=== PATIENT | male | born 1995 | race Hispanic/Latino ===

== ENCOUNTER 2017-02-25 09:12 | Emergency (ER) | payer MEDICAID ==
[2017-02-25] MEDS ORDERED: ONDANSETRON ODT 4 MG TAB ONE (09:37)
[2017-02-25] MEDS ORDERED: KETOROLAC TROMETHAMINE 60 MG/2 ML VIAL ONE (09:37)
== END 2017-02-25 10:56 | disposition home or self-care (01) ==
LOC: EDH 09:12
DX: A09 Infectious gastroenteritis and colitis, unspecified (principal); K21.9 Gastro-esophageal reflux disease without esophagitis; Z98.890 Other specified postprocedural states; Z72.0 Tobacco use; Z79.899 Other long term (current) drug therapy
CPT/HCPCS: 82270; 87046; 87205; 96372; 99284; J1885

== ENCOUNTER 2017-05-26 14:48 | Emergency (ER) | payer MEDICAID ==
[2017-05-26] MEDS ORDERED: FAMOTIDINE 20MG TAB 20 MG TAB ONE (15:19)
[2017-05-26] MEDS ORDERED: PREDNISONE 20 MG TABLET ONE (15:19)
== END 2017-05-26 15:43 | disposition home or self-care (01) ==
LOC: EDH 14:48
DX: T63.441A Toxic effect of venom of bees, accidental (unintentional), initial encounter (principal); K21.9 Gastro-esophageal reflux disease without esophagitis; Z79.899 Other long term (current) drug therapy; Z72.0 Tobacco use; Z91.030 Bee allergy status; Y92.89 Other specified places as the place of occurrence of the external cause

== ENCOUNTER 2017-07-18 09:13 | Emergency (ER) | payer MEDICAID ==
[2017-07-18] MEDS ORDERED: ONDANSETRON HCL MDV 20ML 2 MG/ML VIAL ONE (09:36)
[2017-07-18] MEDS ORDERED: SODIUM CHLORIDE 0.9% 1000ML 1,000 ML IV ONE (09:36)
[2017-07-18] MEDS ORDERED: KETOROLAC TROMETHAMINE 30MG/ML ONE (09:37)
[2017-07-18] MEDS ORDERED: DICYCLOMINE HCL 10 MG/ML 2ML AMP IM ONE (09:37)
[2017-07-18 10:03] LABS: BASOPHILS % (AUTO) 0.3 % (0.0-5.0); EOSINOPHILS % (AUTO) 0.3 % (0.0-8.0); HEMATOCRIT 46.2 % (42-54); LYMPHOCYTES % (AUTO) 11.4 % (21.0-51.0); MEAN CORPUSCULAR HEMOGLOBIN 30.8 pg (27.0-33.0); MEAN CORPUSCULAR HGB CONC 35.5 g/dL (32.0-36.0); MEAN CORPUSCULAR VOLUME 86.8 fL (80-100); MONOCYTES % (AUTO) 4.4 % (3.0-13.0); NEUTROPHILS % (AUTO) 83.6 % (40.0-77.0); PLATELET COUNT (AUTO) 212 K/uL (130-400); RED BLOOD CELL COUNT(AUTO) 5.33 MIL/uL (4.50-6.20); RED CELL DISTRIBUTION WIDTH 13.6 % (11.0-15.5); WHITE BLOOD COUNT (AUTO) 8.8 K/uL (4.8-10.8)
[2017-07-18 10:15] LABS: CREATININE 0.8 mg/dL (0.5-1.5); POTASSIUM 4.1 mmol/L (3.5-5.1)
[2017-07-18 10:21] LABS: ALBUMIN 4.4 g/dL (3.5-5.0); BILIRUBIN,TOTAL 0.5 mg/dL (0.2-1.0); TOTAL PROTEIN, SERUM 8.2 g/dL (6.0-8.3)
[2017-07-18] MEDS ORDERED: LIDOCAINE HCL 2% VISCOUS 15 ML UDCUP ONE (10:41)
[2017-07-18] MEDS ORDERED: MAG HYDROX/AL HYDROX/SIMETH ES 30 ML SUSP UDCUP ONE (10:41)
== END 2017-07-18 11:25 | disposition home or self-care (01) ==
LOC: EDH 09:13
DX: K29.70 Gastritis, unspecified, without bleeding (principal); K29.80 Duodenitis without bleeding; K21.9 Gastro-esophageal reflux disease without esophagitis; F41.9 Anxiety disorder, unspecified; Z91.030 Bee allergy status
CPT/HCPCS: 36415; 80053; 83690; 85025; 96361; 96372; 96374; 96375; 99285; J0500; J1885; J7030

== ENCOUNTER 2018-03-02 10:07 | Emergency (ER) | payer MEDICAID ==
[2018-03-02] MEDS ORDERED: IBUPROFEN 600 MG TABLET ONE (10:51)
== END 2018-03-02 11:21 | disposition home or self-care (01) ==
LOC: EDH 10:07
DX: S90.32XA Contusion of left foot, initial encounter (principal); K21.9 Gastro-esophageal reflux disease without esophagitis; Z91.030 Bee allergy status; W20.8XXA Other cause of strike by thrown, projected or falling object, initial encounter; Y93.89 Activity, other specified; Y92.098 Other place in other non-institutional residence as the place of occurrence of the external cause; Y99.8 Other external cause status
CPT/HCPCS: 73630

== ENCOUNTER 2019-01-29 22:16 | Emergency (ER) | payer MEDICAID ==
[2019-01-29] MEDS ORDERED: ONDANSETRON HCL 4 MG/2 ML VIAL ONE (22:44)
[2019-01-29] MEDS ORDERED: FAMOTIDINE/PF 20 MG/2 ML VIAL IV ONE (22:44)
[2019-01-29 23:00] LABS: BASOPHILS % (AUTO) 0.8 % (0.0-5.0); EOSINOPHILS % (AUTO) 0.6 % (0.0-8.0); HEMATOCRIT 42.3 % (42-54); LYMPHOCYTES % (AUTO) 27.7 % (21.0-51.0); MEAN CORPUSCULAR HEMOGLOBIN 30.5 pg (27.0-33.0); MONOCYTES % (AUTO) 7.4 % (3.0-13.0); NEUTROPHILS % (AUTO) 63.5 % (40.0-77.0); NUCLEATED RED BLOOD CELLS 0.1 % (0.0-0.19); PLATELET COUNT (AUTO) 152 K/uL (130-400); RED BLOOD CELL COUNT(AUTO) 4.86 MIL/uL (4.50-6.20); RED CELL DISTRIBUTION WIDTH 13.6 % (11.0-15.5); WHITE BLOOD COUNT (AUTO) 4.9 K/uL (4.8-10.8)
[2019-01-29 23:13] LABS: CREATININE 0.7 mg/dL (0.5-1.5); POTASSIUM 4.3 mmol/L (3.5-5.1)
[2019-01-29 23:19] LABS: ALBUMIN 3.9 g/dL (3.5-5.0); BILIRUBIN,TOTAL 0.5 mg/dL (0.2-1.0); TOTAL PROTEIN, SERUM 7.3 g/dL (6.0-8.3)
[2019-01-29] MEDS ORDERED: SUCRALFATE 1 GM TABLET ONE (23:33)
[2019-01-29] MEDS ORDERED: HYOSCYAMINE SULFATE 0.125 MG TAB.SUBL SL ONE (23:33)
== END 2019-01-30 00:48 | disposition home or self-care (01) ==
LOC: EDH 22:16
DX: K29.01 Acute gastritis with bleeding (principal); K21.9 Gastro-esophageal reflux disease without esophagitis; Z91.030 Bee allergy status
CPT/HCPCS: 36415; 80053; 83690; 85025; 96361; 96374; 96375; 99285; J2405; J3490

== ENCOUNTER 2022-06-15 21:42 | Emergency (ER) | payer MEDICAID ==
[~2022-06-15] VITALS: Ht 177.8 cm; Wt 112.0 kg
[2022-06-15 22:58] LABS: BASOPHILS % (AUTO) 0.4 % (0.0-5.0); EOSINOPHILS % (AUTO) 0.4 % (0.0-8.0); HEMATOCRIT 45.8 % (42-54); LYMPHOCYTES % (AUTO) 15.3 % (21.0-51.0); MEAN CORPUSCULAR HEMOGLOBIN 29.7 pg (27.0-33.0); MEAN CORPUSCULAR HGB CONC 35.2 g/dL (32.0-36.0); MEAN CORPUSCULAR VOLUME 84.5 fL (79-99); MONOCYTES % (AUTO) 4.6 % (3.0-13.0); PLATELET COUNT (AUTO) 225 K/uL (130-400); RED BLOOD CELL COUNT(AUTO) 5.42 MIL/uL (4.50-6.20); RED CELL DISTRIBUTION WIDTH 12.9 % (11.0-15.5); WHITE BLOOD COUNT (AUTO) 11.3 K/uL (4.8-10.8)
[2022-06-15] MEDS ORDERED: MAG/ALUM/SIMETH 30 ML UDCUP ONE (23:05)
[2022-06-15] MEDS ORDERED: LIDOCAINE HCL 2% VISCOUS 15 ML UDCUP ONE (23:05)
[2022-06-15 23:09] VITALS: BP 124/75
[2022-06-15 23:14] LABS: CREATININE 1.1 mg/dL (0.5-1.5); POTASSIUM 3.7 mmol/L (3.5-5.1)
[2022-06-15 23:18] LABS: ALBUMIN 4.4 g/dL (3.5-5.0); TOTAL PROTEIN, SERUM 8.1 g/dL (6.0-8.3)
[2022-06-15] MEDS ORDERED: DICYCLOMINE HCL 10 MG/5 ML ML PO SCH (23:30)
[2022-06-15] MEDS ORDERED: LIDOCAINE HCL 2% VISCOUS 15 ML UDCUP PO ONE (23:30)
[2022-06-15] MEDS ORDERED: MAG/ALUM/SIMETH 30 ML UDCUP PO ONE (23:30)
[2022-06-15 23:33] LABS: APPEARANCE,URINE CLEAR (CLEAR); BILIRUBIN,URINE NEGATIVE (NEGATIVE); COLOR,URINE YELLOW (YELLOW); GLUCOSE, URINE (UA) NEGATIVE (NEGATIVE); KETONES,URINE 5 mg/dL (NEGATIVE); LEUKOCYTE ESTERASE ,URINE NEGATIVE Leu/uL (NEGATIVE); NITRATE,URINE NEGATIVE (NEGATIVE); OCCULT BLOOD,URINE NEGATIVE (NEGATIVE); PROTEIN,URINE 50 mg/dL (NEGATIVE); UROBILINOGEN,URINE 3 mg/dL (0.2-1.0)
[2022-06-15 23:35] LABS: MUCUS,URINE MANY LPF (None Seen); SQUAMOUS EPITHELIAL CELL,UR RARE /HPF (0-2)
[2022-06-16] MEDS ORDERED: IBUP-1493 PO (00:27)
[2022-06-16] MEDS ORDERED: CEFU500T67 PO (00:27)
== END 2022-06-16 02:33 | disposition home or self-care (01) ==
LOC: EDH 21:42
DX: N39.0 Urinary tract infection, site not specified (principal)
CPT/HCPCS: 36415; 74021; 80053; 81001; 83690; 85025; 87088

== ENCOUNTER 2023-10-20 19:04 | Emergency (ER) | payer MEDICAID ==
[~2023-10-20] VITALS: Ht 175.3 cm; Wt 90.7 kg
[~2023-10-20 19:04] MED LIST: CEFU500T67 PO; IBUP-1493 PO
[2023-10-20 19:27] VITALS: BP 152/94; PULSE 83; RESP 20
[2023-10-20] MEDS: LIDOCAINE HCL 1% 20 ML VIAL INJ SCH (20:30)
[2023-10-20] MEDS: DIPH,PERTUSS(ACELL),TET VAC/PF 0.5 ML VIAL IM ONE (22:25)
== END 2023-10-20 23:12 | disposition home or self-care (01) ==
LOC: EDH 19:04
DX: S01.01XA Laceration without foreign body of scalp, initial encounter (principal); W22.8XXA Striking against or struck by other objects, initial encounter; Y93.89 Activity, other specified; Y92.89 Other specified places as the place of occurrence of the external cause; Y99.8 Other external cause status
CPT/HCPCS: 12002; 70450; 90471; 90715

== ENCOUNTER 2025-01-29 01:52 | Observation (INO) | payer MEDICAID ==
[~2025-01-29] VITALS: Ht 177.8 cm; Wt 118.0 kg
[2025-01-29] VITALS (25 sets, daily range): BP systolic 113–160; BP diastolic 58–92; PULSE 71–109; RESP 14–20; TEMP 97.1–98.5; O2SAT 95–100
[2025-01-29] MEDS: 0.9%NACL 1000ML 1,000 ML IV ONE (02:19)
[2025-01-29 02:23] LABS: IMMATURE GRANULOCYTE ABSOLUTE 0.03 K/uL (0-1); NUCLEATED RED BLOOD CELLS 0.0 % (0.0-0.19); PLATELET COUNT (AUTO) 270 K/uL (130-400); RED BLOOD CELL COUNT(AUTO) 5.20 MIL/uL (4.50-6.20); RED CELL DISTRIBUTION WIDTH 12.9 % (11.0-15.5); WHITE BLOOD COUNT (AUTO) 11.5 K/uL (4.8-10.8)
[2025-01-29 02:38] LABS: CREATININE 0.9 mg/dL (0.5-1.3); GLOMERULAR FILTR. RATE CALC 119.0 mL/min (>90); GLUCOSE,RANDOM 129.0 mg/dL (70-105); SODIUM SERUM 137.0 mmol/L (136-145); UREA NITROGEN, BLOOD 10.0 mg/dL (7-18)
[2025-01-29 02:43] LABS: ASPARTATE AMINOTRANSFERASE 28.0 U/L (10-37); TOTAL PROTEIN, SERUM 6.8 g/dL (6.0-8.3)
--- NOTE | 2025-01-29 02:49 | ERN ---
ED Note History of Present Illness Stated Complaint: C/O ABD PAIN Chief Complaint: Abdominal Pain Time Seen by MD: :57 Time Seen by Midlevel: 01:57 Dictation: The patient is a 29-year-old male with no past medical history who presents to the emergency department with complains of right lower quadrant abd pain onset prior to arrival. Denies any nausea, vomiting or diarrhea. Reports last bm yesterday. Denies fevers or urinary complains. Allergies: Coded Allergies: No Known Allergies (Unverified Allergy, Unknown, 06/15/22) Home Meds Active Scripts Ibuprofen (Motrin/Advil) 800 Mg Tab, 800 MG PO TIDP PRN for PAIN, #30 TAB Prov:ROWAN TIPTON MD 06/16/22 Cefuroxime Axetil (Cefuroxime) 500 Mg Tablet, 500 MG PO BID, #20 TAB Prov:ROWAN TIPTON MD 06/16/22 Past Medical History Past Medical History: No Pertinent History Surgical History: None Family History: Negative Social History: ETOH, Lives with family Review of System Dictation Constitutional: Negative for fever,chills, and weight loss Eyes: Negative for injury, pain,redness, and discharge ENT: Negative for injury,pain or swelling Cardiovascular: Negative for chest pain, palpitations, and edema Respiratory: Negative for shortness of breath, cough, and wheezing, Abdomen/GI: Negative for nausea, vomiting, diarrhea, and constipation Positive for abdominal pain, Back: Negative for injury and pain : Negative for injury, bleeding and discharge MS/Extremity: Negative for injury and deformity Skin: Negative for rash, and discoloration Neuro: Negative for headache, weakness, numbness, tingling, and seizure Psych: Negative for suicide ideation, homicidal ideation, and hallucinations Initial Vital Sign VS Vital Signs Date Time Temp Pulse Resp B/P (MAP) Pulse Ox O2 Delivery O2 Flow Rate FiO2 01/29/25 01:55 97.2 81 20 134/84 100 Room Air Physical Exam Dictation Vital Signs reviewed General Appearance: Alert, oriented x 3, no acute distress, well developed, nourished. Head and Face: non-traumatic. Eyes: PERRL, pink conjunctivas, eyelid no trauma, anterior chamber with arcus senilis. Ears: Pinnas intact and no signs of trauma or erythema ear canals clear and no discharge TM no erythema Nose: No discharge, no bleeding. Oropharynx: Mouth normal, tongue pink. pharynx clear,no erythema, tonsils no exudates, no abscesses noted, mucous membrane moist Neck: Supple, non-tender, no thyromegaly, no masses, no JVD, no bruits Breast:Deferred Chest:No tenderness, no crepitus, no paradoxical movement, no retractions Lungs:Clear, well-ventilated, symmetric, no rales, no wheezing, no rhonchi, no stridor, good breath sounds bilaterally Heart: Regular rate, regular rhythm, no murmur, no gallops Vascular: no peripheral edema, Abdomen: Soft, positive bowel sounds, nondistended, no guarding, rlq tenderness, no rebound, no masses no hepatomegaly, no splenomegaly, no Cox's sign, no hernias. Rectal: Deferred Genital: Deferred Neurological: Normal speech, motor function intact, sensory function intact Musculoskeletal: Neck nontender, full range of motion, back nontender, full range of motion, Extremities: nontender, full range of motion Skin: Color pink, dry, no turgor, no rash, no lacerations, no abrasions, no contusions. Lymphatic: Deferred Results (Laboratory/Radiology) Laboratory/Radiology Laboratory Tests Test 01/29/25 02:13 White Blood Count 11.5 K/uL (4.8-10.8) H Red Blood Count 5.20 MIL/uL (4.50-6.20) Hemoglobin 15.6 g/dL (14.0-18.0) Hematocrit 44.3 % (42-54) Mean Corpuscular Volume 85.2 fL (79-99) Mean Corpuscular Hemoglobin 30.0 pg (27.0-33.0) Mean Corpuscular Hemoglobin Concent 35.2 g/dL (32.0-36.0) Red Cell Distribution Width 12.9 % (11.0-15.5) Platelet Count 270 K/uL (130-400) Mean Platelet Volume 9.8 fL (7.5-10.5) Immature Granulocyte % (Auto) 0.3 % (0-1) Neutrophils (%) (Auto) 74.4 % (40.0-77.0) Lymphocytes (%) (Auto) 19.3 % (21.0-51.0) L Monocytes (%) (Auto) 4.8 % (3.0-13.0) Eosinophils (%) (Auto) 0.6 % (0.0-8.0) Basophils (%) (Auto) 0.6 % (0.0-5.0) Neutrophils # (Auto) 8.5 K/uL (1.8-7.7) H Lymphocytes # (Auto) 2.2 K/uL (1.0-4.8) Monocytes # (Auto) 0.6 K/uL (0.1-1.0) Eosinophils # (Auto) 0.07 K/uL (0.00-0.70) Basophils # (Auto) 0.07 K/uL (0.00-0.20) Absolute Immature Granulocyte (auto 0.03 K/uL (0-1) Nucleated Red Blood Cells 0.0 % (0.0-0.19) Sodium Level 137 mmol/L (136-145) Potassium Level 3.7 mmol/L (3.5-5.1) Chloride Level 103 mmol/L (101-111) Carbon Dioxide Level 25 mmol/L (21-32) Blood Urea Nitrogen 10 mg/dL (7-18) Creatinine 0.9 mg/dL (0.5-1.3) Glomerular Filtration Rate Calc 119 mL/min (>90) Random Glucose 129 mg/dL (70-105) H Total Calcium 8.4 mg/dL (8.5-10.1) L Total Bilirubin 0.4 mg/dL (0.2-1.0) Direct Bilirubin 0.1 mg/dL (0.0-0.3) Aspartate Amino Transf (AST/SGOT) 28 U/L (10-37) Alanine Aminotransferase (ALT/SGPT) 32 U/L (12-78) Alkaline Phosphatase 79 U/L (50-136) Total Protein 6.8 g/dL (6.0-8.3) Albumin 3.5 g/dL (3.5-5.0) Lipase 35 U/L (16-77) ED Course ED Course Orders Procedure Category Date Status Time Cbc With Differential LAB 01/29/25 Complete 02:05 Basic Metabolic Panel LAB 01/29/25 Complete 02:05 Hepatic Function Panel LAB 01/29/25 Complete 02:05 Lipase LAB 01/29/25 Complete 02:05 Morphine 4mg Syg PHA 01/29/25 Complete (Morphine 4mg Syg) 02:30 Ondansetron 4mg Inj PHA 01/29/25 Complete (Zofran 4mg Inj) 02:30 0.9%Nacl 1000ml (Ns PHA 01/29/25 Complete 1000ml) 02:30 Urinalysis Profile LAB 01/29/25 Logged 02:08 Ct Abdomen/Pelvis CT 01/29/25 Taken W/Contrast 02:33 Zosyn 3.375gm+Ns 50ml PHA 01/29/25 In Process (Zosyn 3.375gm+Ns 04:00 Current Medications Medications (Trade) Dose Ordered Sig/Clem Route PRN Reason Start Time Stop Time Status Last Admin Dose Admin Morphine Sulfate (morPHINE 4MG SYG) 4 mg ONCE ONCE IVP 01/29/25 02:30 01/29/25 02:31 DC 01/29/25 02:19 Ondansetron HCl (zoFRAN 4MG INJ) 4 mg ONCE ONCE IVP 01/29/25 02:30 01/29/25 02:31 DC 01/29/25 02:19 Piperacillin Sod/ Tazobactam Sod (Zosyn 3.375gm+NS 50ml) 3.375 gm ONCE ONCE IV 01/29/25 04:00 01/29/25 04:01 Sodium Chloride 1,000 ml @ 0 mls/hr ONCE ONCE IV 01/29/25 02:30 01/29/25 02:31 DC 01/29/25 02:19 Vital Signs Date Time Temp Pulse Resp B/P (MAP) Pulse Ox O2 Delivery O2 Flow Rate FiO2 01/29/25 01:55 97.2 81 20 134/84 100 Room Air Medical Decision Making MDM Received sign-out for mid-level: Patient has a 29-year-old male who woke up in the middle of the night 2-1/2 hours prior to arrival with the acute onset right- sided abdominal pain. He decided to come to the emergency room for evaluation. As per cytogenetic technician, images/readings are not crossing over to the system however in his noted to be an appendicitis. We will admit the patient to the hospitalist, keep NPO and started on Zosyn. DX & DISP Disposition: Inpatient Departure Impression: Primary Impression: Acute appendicitis Condition: Stable Referrals: KRISTIN JEAN-BAPTISTE (PCP) TOD ELIZABETH Jan 29, 2025 02:48 JERORD MORTENSEN MD Jan 29, 2025 03:51
--- NOTE | 2025-01-29 03:45 | NUR ---
PATIENT STATES HE DOES NOT TAKE ANY PRESCRIBED MEDICATIONS
[2025-01-29] MEDS: ZOSYN 3.375GM +NS 50ML IV ONE (03:50)
[2025-01-29 04:14] LABS: APPEARANCE,URINE CLEAR (CLEAR); GLUCOSE, URINE (UA) NEGATIVE (NEGATIVE); LEUKOCYTE ESTERASE ,URINE NEGATIVE Leu/uL (NEGATIVE); NITRATE,URINE NEGATIVE (NEGATIVE); OCCULT BLOOD,URINE NEGATIVE (NEGATIVE)
[2025-01-29 04:26] LABS: ADD UA MICROSCOPIC NO
--- NOTE | 2025-01-29 04:31 | HP ---
[facility] HISTORY AND PHYSICAL Date of Service: Jan 29, 2025 Time of Service: 04:14 PCP: Moon Gusman HISTORY OF PRESENT ILLNESS: This is a 29-year-old male with no pertinent medical history who presents to the ED for complaints of right lower quadrant abdominal pain started around midnight and patient took Ibuprofen 4 tabs of 200 mg prior to coming but no relief he said.Patient reports he had chicken, noddles , potato and also Takis 3 hours after he started having abdominal pain that was sharp so he decided to come tot he Ed for evaluation. Seen and examined patient in the ED awake,alert and coherent,appears comfortable,reports pain has subsided to 2/10 pain level at this time. was at bedside during my evaluation.Patient denies fever,chills,nausea,vomiting,and diarrhea.Last bowel movement was yesterday and it was normal he said. Vital signs temperature 97.2, heart rate 81, blood pressure 134/84 saturation 100% on room air. Labs: WBC 11 hemoglobin 15, hematocrit 44, platelet count 270. Random glucose 129, total calcium 8.4 the rest of the chemistries normal. While in the ER patient received morphine 4 mg IV, Zofran 4 mg IV 1 L NS bolus and Zosyn IV.As per ER MD ,preliminary CT abdomen result showed an acute appendicitis and General surgery photonics technician was consulted.Will admit patient for further medical management. REVIEW OF SYSTEMS CONSTITUTIONAL: Denies fevers, chills, or night sweats. No unintentional weight loss reported. NEUROLOGICAL: Denies headache, amaurosis fugax, motor weakness, sensory deficit, vertigo/spinning sensation, gait abnormalities, or tremors. ENT: No hearing loss, otalgia, otorrhea, rhinitis, rhinorrhea, hoarseness, or sore throat. CARDIOVASCULAR: Denies any exertional angina, dyspnea on exertion, orthopnea, paroxysmal nocturnal dyspnea, palpitations, life-threatening arrhythmias, claudication. PULMONARY: Denies any shortness of breath, cough, phlegm/sputum, hemoptysis, pleuritic chest pain. SLEEP: Denies morning headaches, daytime somnolence or napping. Denies difficulty falling asleep, staying asleep, waking from sleep. Denies knowledge of snoring. GASTROINTESTINAL: Complained of right lower quadrant abdominal pain Denies any type of dysphagia to either liquids or solids. Denies nausea, vomiting, pyrosis, early satiety, diarrhea, constipation, or changes in stool consistency or caliber. Denies coffee-ground emesis, hematemesis, hematochezia, or melanotic stools. GENITOURINARY: Denies frequency, urgency, nocturia, hematuria or incontinence (Storage/Irritative symptoms.) Low urinary stream, straining to void, urinary intermittency or hesitancy, splitting of the voiding stream, terminal dribbling. ENDOCRINOLOGIC: Denies polyuria, polydipsia, polyphagia or heat/cold intolerances. HEMATOLOGIC: Denies thrombophilia/previous clots, or coagulopathy/bleeding disorders. ONCOLOGIC: Denies personal history of malignancy. DERMATOLOGIC: Denies rashes or pruritus. PSYCHIATRIC: Denies any suicidal or homicidal ideation. Denies hallucinations. PAST MEDICAL HISTORY: [ Patient denies ] PAST SURGICAL HISTORY: [ Right knee surgery as a child] PAST SOCIAL HISTORY: [ Lives with . Patient denies alcohol and recreational drug use. Patient admits to smoking three cigarettes per day] FAMILY HISTORY: [ Noncontributory ] Coded Allergies: No Known Allergies (Unverified Allergy, Unknown, 06/15/22) PHYSICAL EXAM GENERAL APPEARANCE: The patient is awake, alert, and oriented, in no acute cardiopulmonary distress. NEUROLOGICAL: Cranial nerves II-XII grossly intact. Motor is 5/5 in bilateral upper and lower extremities proximal to distal. No sensory deficits. HEENT: Face is symmetric. Pupils are equal and reactive. Extraocular movements are intact. NECK: Supple. No JVD. No thyromegaly. No submental, submandibular, pre-/postau ricular, occipital or supraclavicular lymphadenopathy. CHEST: Normal chest expansion. No Telemetry. LUNGS: Absence of any rales, rhonchi or any wheezing. CARDIOVASCULAR: Regular. S1 and S2 normal. No appreciable rubs, murmurs or gallops. ABDOMEN: Positive rebound tenderness around right lower quadrant area Soft and nondistended. There is no voluntary guarding, or rigidity. : Deferred. No Garcia. EXTREMITIES: Non-edematous and not cyanotic. No clubbing. Good capillary refill. SKIN: No skin breakdown. Vital Sign (Last 24 Hours) 01/29/25 01:55 Temp 97.2 Pulse 81 Resp 20 B/P (MAP) 134/84 Pulse Ox 100 O2 Delivery Room Air LABS: Laboratory: Test 01/29/25 02:13 Range/Units White Blood Count 11.5 H 4.8-10.8 K/uL Red Blood Count 5.20 4.50-6.20 MIL/uL Hemoglobin 15.6 14.0-18.0 g/dL Hematocrit 44.3 42-54 % Mean Corpuscular Volume 85.2 79-99 fL Mean Corpuscular Hemoglobin 30.0 27.0-33.0 pg Mean Corpuscular Hemoglobin Concent 35.2 32.0-36.0 g/dL Red Cell Distribution Width 12.9 11.0-15.5 % Platelet Count 270 130-400 K/uL Mean Platelet Volume 9.8 7.5-10.5 fL Immature Granulocyte % (Auto) 0.3 0-1 % Neutrophils (%) (Auto) 74.4 40.0-77.0 % Lymphocytes (%) (Auto) 19.3 L 21.0-51.0 % Monocytes (%) (Auto) 4.8 3.0-13.0 % Eosinophils (%) (Auto) 0.6 0.0-8.0 % Basophils (%) (Auto) 0.6 0.0-5.0 % Neutrophils # (Auto) 8.5 H 1.8-7.7 K/uL Lymphocytes # (Auto) 2.2 1.0-4.8 K/uL Monocytes # (Auto) 0.6 0.1-1.0 K/uL Eosinophils # (Auto) 0.07 0.00-0.70 K/uL Basophils # (Auto) 0.07 0.00-0.20 K/uL Absolute Immature Granulocyte (auto 0.03 0-1 K/uL Nucleated Red Blood Cells 0.0 0.0-0.19 % Sodium Level 137 136-145 mmol/L Potassium Level 3.7 3.5-5.1 mmol/L Chloride Level 103 101-111 mmol/L Carbon Dioxide Level 25 21-32 mmol/L Blood Urea Nitrogen 10 7-18 mg/dL Creatinine 0.9 0.5-1.3 mg/dL Glomerular Filtration Rate Calc 119 >90 mL/min Random Glucose 129 H 70-105 mg/dL Total Calcium 8.4 L 8.5-10.1 mg/dL Total Bilirubin 0.4 0.2-1.0 mg/dL Direct Bilirubin 0.1 0.0-0.3 mg/dL Aspartate Amino Transf (AST/SGOT) 28 10-37 U/L Alanine Aminotransferase (ALT/SGPT) 32 12-78 U/L Alkaline Phosphatase 79 50-136 U/L Total Protein 6.8 6.0-8.3 g/dL Albumin 3.5 3.5-5.0 g/dL Lipase 35 16-77 U/L DIAGNOSTICS / RADIOLOGY: [ ] ASSESSMENT: Acute appendicitis POA Nicotine dependence POA Morbid obesity POA PLAN: We will admit patient in medical surgical We will keep nothing by mouth We will start NS @ 100 ml / hr x2 bags and re evaluate We will start on Protonix 40 mg IV daily for GI prophylaxis We will replace electrolytes as needed per protocol We will add prn medication for fever,pain,cough , nausea and vomiting We will reconcile home meds once medlist available Follow-up Urinalysis and CT abdomen and pelvis result Counseled on smoking cessation We will seek general surgery consultation We will request labs in am Further orders to follow depending on above results Case discussed with attending physician and came up with above treatment and plan of care. ADVANCED CARE PLANNING 1. Which of the following were discussed? Hospice Care - No Therapeutic options - Yes Advance Directives - No Other discussions - 2. Discussed with who? Patient and 3. Voluntary nature of this service was explained to the patient? Yes 4. Amount of time spent - ___22 min____ 5. Reviewed by Physician? (if this service was performed by NPP) Yes Patient seen and examined by me. Agree with note by SLUDGE MILL OPERATOR SEE ADDITIONAL ORDERS PER CHART DISCUSSED WITH NURSING STAFF BRUCE MILES Jan 29, 2025 04:31
[2025-01-29] MEDS: LACTATED RINGERS 1000ML 1,000 ML IV SCH (04:58)
--- NOTE | 2025-01-29 06:40 | NUR ---
ADMISSION NOTE PATIENT ADMITTED, AMBULATORY, ALERT, WITH AT BEDSIDE. NO HOME MEDICATIONS CLAIMED PER PATIENT. PATIENT ON ROOM AIR AT THIS TIME. CALL LIGHT IN REACH, TAUGHT TO USE.
[2025-01-29] MEDS ORDERED: IOHEXOL-350 75 ML VIAL IV ONE (08:05)
--- NOTE | 2025-01-29 11:12 | NUR ---
DCP:HOME Pt currently lives at home with his . Pt denies any DME, home health, or provider services. Pt states that he is able to complete ALDs independently. PCP is Dr. Mustafa and uses [facility] for any RX needs. At DC pt will want to go home and family can assist with transportation.
[2025-01-29] MEDS: ZOSYN 3.375GM+NS 50ML 50 ML IV SCH (12:33)
[2025-01-29] MEDS ORDERED: LIDOCAINE PF 100MG/5ML (2%) SYRINGE 5ML ONE (14:11)
[2025-01-29] MEDS ORDERED: SUCCINYLCHOLINE CHLORIDE 20 MG/ML 10 ML VIAL ONE (14:13)
[2025-01-29] MEDS ORDERED: GLYCOPYRROLATE 0.2 MG/ML 5 ML VIAL ONE (14:13)
[2025-01-29] MEDS ORDERED: NEOSTIGMINE METHYLSULFATE 1MG/ML IV ONE (14:13)
[2025-01-29] MEDS ORDERED: MIDAZOLAM HCL 1 MG/ML 2ML VIAL ONE (14:17)
[2025-01-29] MEDS ORDERED: SUGAMMADEX SODIUM 200 MG/2 ML VIAL IV ONE (14:18)
--- NOTE | 2025-01-29 16:05 | OP ---
Operative Note: DATE OF PROCEDURE: 01/29/25 SURGEON: CHANA WHITE MD PICKLING GRADER: [] ANESTHESIA: [] General ANESTHESIOLOGIST/DRUM BARKER OPERATOR: [] PREOPERATIVE DIAGNOSIS: [] Acute appendicitis POSTOPERATIVE DIAGNOSIS: [] The same SYNOPSIS: [] PROCEDURE: [] Laparoscopic appendectomy ESTIMATED BLOOD LOSS: [] 100 cc INDICATIONS: [] DESCRIPTION OF PROCEDURE: []With the patient prepped and draped in usual fashion supraumbilical incision was done. Using direct technique I was able to place a balloon trocar and abdomen insufflated. Two 5 mm trochars were inserted under direct vision in the lower abdomen. Immediately we identified an inflamed appendix and a window was created in the base and the appendix. Using a laparoscopic 45 mm AALIYAH white stapler I transected the base of appendix. I used a reload to transect the mesoappendix. I had one bleeding point that I need to cauterize and and then we were able to use a 2nd loading of the white staplers to control bleeding. The appendix was placed in a bag. After adequate hemostasis and irrigation in the area I remove all the trochars under direct vision and the appendix through the supraumbilical incision. The fascia was closed with the 0 Vicryl [id number]. All incisions were closed with staplers. I placed 20 cc of local. Patient tolerated procedure without complication CHANA WHITE MD Jan 29, 2025 16:05
[2025-01-30 04:27] VITALS: BP 136/76; PULSE 82; RESP 20; TEMP 98.5
[2025-01-30 04:42] LABS: IMMATURE GRANULOCYTE ABSOLUTE 0.04 K/uL (0-1); NUCLEATED RED BLOOD CELLS 0.0 % (0.0-0.19); PLATELET COUNT (AUTO) 226 K/uL (130-400); RED BLOOD CELL COUNT(AUTO) 4.71 MIL/uL (4.50-6.20); RED CELL DISTRIBUTION WIDTH 12.4 % (11.0-15.5); WHITE BLOOD COUNT (AUTO) 12.1 K/uL (4.8-10.8)
[2025-01-30 04:57] LABS: INR 1.19 (0.85-1.15)
[2025-01-30 04:58] LABS: ASPARTATE AMINOTRANSFERASE 20.0 U/L (10-37); CREATININE 0.8 mg/dL (0.5-1.3); GLOMERULAR FILTR. RATE CALC 123.0 mL/min (>90); GLUCOSE,RANDOM 127.0 mg/dL (70-105); SODIUM SERUM 141.0 mmol/L (136-145); TOTAL PROTEIN, SERUM 6.6 g/dL (6.0-8.3); UREA NITROGEN, BLOOD 6.0 mg/dL (7-18)
[2025-01-30 05:32] LABS: WBC MORPHOLOGY CONSISTENT W/DIFF
[2025-01-30 05:33] LABS: PLATELET MORPHOLOGY PLT CLUMPS PRESENT
[2025-01-30 07:16] VITALS: BP 115/66; PULSE 77; RESP 16; TEMP 98.1
[2025-01-30 08:20] VITALS: O2SAT 97
--- NOTE | 2025-01-30 08:30 | NUR ---
PT [facility] CLEAR LIQUID DIET
--- NOTE | 2025-01-30 09:43 | PN ---
This is a 29-year-old male postop day one for acute appendicitis with laparoscopic appendectomy Interval history: This 20-year-old male seen in his room resting Patient with bowel movement reported WBCs 12 with a hemoglobin of 14 Abdominal pain manageable No other acute events reported vitals stable Physical exam General: Awake alert and oriented Heart: Regular rate and rhythm} Lungs: Clear to auscultation no distress Abdomen: [Soft, nontender, nondistended Assessment : This is a 29-year-old male status post appendectomy with Dr. Alexandre Plan: From surgical standpoint once patient is able to tolerate solid diet patient is cleared from surgical standpoint for discharge Patient to follow up in two weeks No immediate surgical intervention planned Continue with current medical management Surgical case has been discussed with my supervising physician in the above plan was formulated and agreed upon We appreciate the hospitalist team for us to participate in patient's care. Greater than 45 minutes of time spent patient, reviewing chart, working on documentation Vitals/Labs Vital Signs Date Time Temp Pulse Resp B/P (MAP) Pulse Ox O2 Delivery O2 Flow Rate FiO2 01/30/25 07:16 98.1 77 16 115/66 97 Room Air 01/29/25 23:32 0.0 01/29/25 20:00 21 Laboratory Tests 01/30/25 04:32 Medications Current Medications Morphine Sulfate 4 mg ONCE ONCE IVP Last administered on 01/29/25at 02:19; Start 01/29/25 at 02:30; Stop 01/29/25 at 02:31; Status DC Ondansetron HCl 4 mg ONCE ONCE IVP Last administered on 01/29/25at 02:19; Start 01/29/25 at 02:30; Stop 01/29/25 at 02:31; Status DC Sodium Chloride 1,000 ml @ 0 mls/hr ONCE ONCE IV Last administered on 01/29/25at 02:19; Start 01/29/25 at 02:30; Stop 01/29/25 at 02:31; Status DC Piperacillin Sod/ Tazobactam Sod 3.375 gm ONCE ONCE IV Last administered on 01/29/25at 03:50; Start 01/29/25 at 04:00; Stop 01/29/25 at 04:05; Status DC Piperacillin Sod/ Tazobactam Sod 50 ml @ 12.5 mls/hr Q8H IV Last administered on 01/30/25at 04:31; Start 01/29/25 at 12:00; Stop 02/08/25 at 11:59 Morphine Sulfate 2 mg Q4H PRN IV Last administered on 01/29/25at 06:45; Start 01/29/25 at 05:00; Stop 02/05/25 at 04:59 Lactated Ringer's 1,000 ml @ 100 mls/hr Q10H IV Last administered on 01/29/25at 20:08; Start 01/29/25 at 05:00; Stop 02/28/25 at 04:59 Pantoprazole Sodium 40 mg DAILY IVP Last administered on 01/29/25at 07:55; Start 01/29/25 at 09:00; Stop 02/28/25 at 08:59 Iohexol 75 ml STK-MED ONCE IV; Start 01/29/25 at 08:05; Stop 01/29/25 at 08:05; Status DC Ondansetron HCl 4 mg Q6H PRN IVP Last administered on 01/29/25at 11:17; Start 01/29/25 at 11:00; Stop 02/28/25 at 10:59 Acetaminophen 650 mg Q4H PRN PO; Start 01/29/25 at 11:00; Stop 01/29/25 at 11:01; Status DC Acetaminophen 1,000 mg Q6H6 IVPB Last administered on 01/30/25at 06:26; Start 01/29/25 at 12:00; Stop 01/31/25 at 11:59 Dexamethasone Sodium Phosphate 10 mg STK-MED ONCE .ROUTE; Start 01/29/25 at 14:11; Stop 01/29/25 at 14:12; Status DC Lidocaine HCl 100 mg STK-MED ONCE .ROUTE; Start 01/29/25 at 14:11; Stop 01/29/25 at 14:12; Status DC Ondansetron HCl 4 mg STK-MED ONCE .ROUTE; Start 01/29/25 at 14:12; Stop 01/29/25 at 14:13; Status DC Glycopyrrolate 1 mg STK-MED ONCE .ROUTE; Start 01/29/25 at 14:13; Stop 01/29/25 at 14:13; Status DC Neostigmine Methylsulfate 10 mg STK-MED ONCE IV; Start 01/29/25 at 14:13; Stop 01/29/25 at 14:13; Status DC Succinylcholine Chloride 200 mg STK-MED ONCE .ROUTE; Start 01/29/25 at 14:13; Stop 01/29/25 at 14:13; Status DC Propofol 200 mg STK-MED ONCE IV; Start 01/29/25 at 14:13; Stop 01/29/25 at 14:13; Status DC Rocuronium [place] 50 mg STK-MED ONCE .ROUTE; Start 01/29/25 at 14:13; Stop 01/29/25 at 14:13; Status DC Fentanyl Citrate 100 mcg STK-MED ONCE .ROUTE; Start 01/29/25 at 14:13; Stop 01/29/25 at 14:13; Status DC Ketamine HCl 50 mg STK-MED ONCE .ROUTE; Start 01/29/25 at 14:15; Stop 01/29/25 at 14:15; Status DC Midazolam HCl 2 mg STK-MED ONCE .ROUTE; Start 01/29/25 at 14:17; Stop 01/29/25 at 14:17; Status DC Acetaminophen 100 ml @ As Directed STK-MED ONCE .ROUTE; Start 01/29/25 at 14:19; Stop 01/29/25 at 14:19; Status DC Fentanyl Citrate 100 mcg STK-MED ONCE .ROUTE; Start 01/29/25 at 15:12; Stop 01/29/25 at 15:12; Status DC Bupivacaine HCl 5 mg STK-MED ONCE .ROUTE Last administered on 01/29/25at 16:01; Start 01/29/25 at 15:24; Stop 01/29/25 at 15:24; Status DC Fentanyl Citrate 100 mcg STK-MED ONCE .ROUTE; Start 01/29/25 at 15:34; Stop 01/29/25 at 15:34; Status DC Magnesium Sulfate 50 ml @ 0 mls/hr PROTOCOL PRN IV; Start 01/30/25 at 07:00; Stop 03/01/25 at 06:59 SAMANTHA VASQUEZ Jr. PAC Jan 30, 2025 09:43
[2025-01-30] MEDS: MAGNESIUM 2GM PREMIX 50ML 50 ML IV PRN (09:44)
[2025-01-30 12:10] VITALS: BP 120/77; PULSE 76; RESP 16; TEMP 98
--- NOTE | 2025-01-30 13:00 | NUR ---
PT [facility] FULL LIQUID DIET
--- NOTE | 2025-01-30 17:25 | DS ---
Discharge Summary Hospital Course Summary: Patient information: Name: Pamela Ibarra Date of : 1995 Admission date: 01/29/2025 Attending physician: Dr. Waqar Proctor Admitting diagnosis: Acute appendicitis POA Nicotine dependence POA Morbid obesity POA Course in hospital: This is a 29-year-old male with no pertinent medical history who presents to the ED for complaints of right lower quadrant abdominal pain started around midnight and patient took Ibuprofen 4 tabs of 200 mg prior to coming but no relief he said.Patient reports he had chicken, noddles , potato and also Takis 3 hours after he started having abdominal pain that was sharp so he decided to come tot he Ed for evaluation. Seen and examined patient in the ED awake,alert and coherent,appears comfortable,reports pain has subsided to 2/10 pain level at this time. was at bedside during my evaluation.Patient denies fever,chills,nausea,vomiting,and diarrhea.Last bowel movement was yesterday and it was normal he said. Vital signs temperature 97.2, heart rate 81, blood pressure 134/84 saturation 100% on room air. Labs: WBC 11 hemoglobin 15, hematocrit 44, platelet count 270. Random glucose 129, total calcium 8.4 the rest of the chemistries normal. While in the ER patient received morphine 4 mg IV, Zofran 4 mg IV 1 L NS bolus and Zosyn IV.As per ER MD ,preliminary CT abdomen result showed an acute appendicitis and General surgery alteration tailor was consulted. The patient was admitted for further management. General surgery was consulted and they did laparoscopic appendectomy on 01/29/2025. After the surgery the patient was started on clear liquid diet. On 01/30/2025 patient has mild abdominal pain which is relieved by taking Tylenol. His diet is advanced to full liquid diet which is able to tolerate. He is able to walk. He did not complain of any symptoms. General surgery is saw the patient and they advised that if the patient can be discharge if he tolerates GI soft diet and advised him to follow with them in 2 weeks. He was started on GI soft diet and he is able to tolerate GI soft diet without any symptoms. He is medically stable and ready for discharge. So we discharged him. A Auxiliary(s): PROGRESS NOTES Name: PAMELA IBARRA Acct: [id number] MR: [id number] : 1995 Admit Date: 01/29/25 SAMANTHA VASQUEZ Jr., PAC, [place] [address] [address] This is a 29-year-old male postop day one for acute appendicitis with laparoscopic appendectomy Interval history: This 20-year-old male seen in his room resting Patient with bowel movement reported WBCs 12 with a hemoglobin of 14 Abdominal pain manageable No other acute events reported vitals stable Physical exam General: Awake alert and oriented Heart: Regular rate and rhythm} Lungs: Clear to auscultation no distress Abdomen: [Soft, nontender, nondistended Assessment : This is a 29-year-old male status post appendectomy with Dr. Alexandre Plan: From surgical standpoint once patient is able to tolerate solid diet patient is cleared from surgical standpoint for discharge Patient to follow up in two weeks No immediate surgical intervention planned Continue with current medical management Surgical case has been discussed with my supervising physician in the above plan was formulated and agreed upon We appreciate the hospitalist team for us to participate in patient's care. Greater than 45 minutes of time spent patient, reviewing chart, working on documentation Vitals/Labs Vital Signs Date Time Temp Pulse Resp B/P (MAP) Pulse Ox O2 Delivery O2 Flow Rate FiO2 01/30/25 07:16 98.1 77 16 115/66 97 Room Air 01/29/25 23:32 0.0 01/29/25 20:00 21 Laboratory Tests 01/30/25 04:32 Medications Current Medications Morphine Sulfate 4 mg ONCE ONCE IVP Last administered on 01/29/25at 02:19; Start 01/29/25 at 02:30; Stop 01/29/25 at 02:31; Status DC Ondansetron HCl 4 mg ONCE ONCE IVP Last administered on 01/29/25at 02:19; Start 01/29/25 at 02:30; Stop 01/29/25 at 02:31; Status DC Sodium Chloride 1,000 ml @ 0 mls/hr ONCE ONCE IV Last administered on 01/29/25at 02:19; Start 01/29/25 at 02:30; Stop 01/29/25 at 02:31; Status DC Piperacillin Sod/ Tazobactam Sod 3.375 gm ONCE ONCE IV Last administered on 01/29/25at 03:50; Start 01/29/25 at 04:00; Stop 01/29/25 at 04:05; Status DC Piperacillin Sod/ Tazobactam Sod 50 ml @ 12.5 mls/hr Q8H IV Last administered on 01/30/25at 04:31; Start 01/29/25 at 12:00; Stop 02/08/25 at 11:59 Morphine Sulfate 2 mg Q4H PRN IV Last administered on 01/29/25at 06:45; Start 01/29/25 at 05:00; Stop 02/05/25 at 04:59 Lactated Ringer's 1,000 ml @ 100 mls/hr Q10H IV Last administered on 01/29/25at 20:08; Start 01/29/25 at 05:00; Stop 02/28/25 at 04:59 Pantoprazole Sodium 40 mg DAILY IVP Last administered on 01/29/25at 07:55; Start 01/29/25 at 09:00; Stop 02/28/25 at 08:59 Iohexol 75 ml STK-MED ONCE IV; Start 01/29/25 at 08:05; Stop 01/29/25 at 08:05; Status DC Ondansetron HCl 4 mg Q6H PRN IVP Last administered on 01/29/25at 11:17; Start 01/29/25 at 11:00; Stop 02/28/25 at 10:59 Acetaminophen 650 mg Q4H PRN PO; Start 01/29/25 at 11:00; Stop 01/29/25 at 11:01; Status DC Acetaminophen 1,000 mg Q6H6 IVPB Last administered on 01/30/25at 06:26; Start 01/29/25 at 12:00; Stop 01/31/25 at 11:59 Dexamethasone Sodium Phosphate 10 mg STK-MED ONCE .ROUTE; Start 01/29/25 at 14:11; Stop 01/29/25 at 14:12; Status DC Lidocaine HCl 100 mg STK-MED ONCE .ROUTE; Start 01/29/25 at 14:11; Stop 01/29/25 at 14:12; Status DC Ondansetron HCl 4 mg STK-MED ONCE .ROUTE; Start 01/29/25 at 14:12; Stop 01/29/25 at 14:13; Status DC Glycopyrrolate 1 mg STK-MED ONCE .ROUTE; Start 01/29/25 at 14:13; Stop 01/29/25 at 14:13; Status DC Neostigmine Methylsulfate 10 mg STK-MED ONCE IV; Start 01/29/25 at 14:13; Stop 01/29/25 at 14:13; Status DC Succinylcholine Chloride 200 mg STK-MED ONCE .ROUTE; Start 01/29/25 at 14:13; Stop 01/29/25 at 14:13; Status DC Propofol 200 mg STK-MED ONCE IV; Start 01/29/25 at 14:13; Stop 01/29/25 at 14:13; Status DC Rocuronium Upperglade 50 mg STK-MED ONCE .ROUTE; Start 01/29/25 at 14:13; Stop 01/29/25 at 14:13; Status DC Fentanyl Citrate 100 mcg STK-MED ONCE .ROUTE; Start 01/29/25 at 14:13; Stop 01/29/25 at 14:13; Status DC Ketamine HCl 50 mg STK-MED ONCE .ROUTE; Start 01/29/25 at 14:15; Stop 01/29/25 at 14:15; Status DC Midazolam HCl 2 mg STK-MED ONCE .ROUTE; Start 01/29/25 at 14:17; Stop 01/29/25 at 14:17; Status DC Acetaminophen 100 ml @ As Directed STK-MED ONCE .ROUTE; Start 01/29/25 at 14:19; Stop 01/29/25 at 14:19; Status DC Fentanyl Citrate 100 mcg STK-MED ONCE .ROUTE; Start 01/29/25 at 15:12; Stop 01/29/25 at 15:12; Status DC Bupivacaine HCl 5 mg STK-MED ONCE .ROUTE Last administered on 01/29/25at 16:01; Start 01/29/25 at 15:24; Stop 01/29/25 at 15:24; Status DC Fentanyl Citrate 100 mcg STK-MED ONCE .ROUTE; Start 01/29/25 at 15:34; Stop 01/29/25 at 15:34; Status DC Magnesium Sulfate 50 ml @ 0 mls/hr PROTOCOL PRN IV; Start 01/30/25 at 07:00; Stop 03/01/25 at 06:59 SAMANTHA VASQUEZ Jr. Jan 30, 2025 09:43 Electronically Signed by: SAMANTHA VASQUEZ Jr., PAC, RI01/30/25 0943 Electronically Co-Signed by: Procedure(s): CT abdomen and pelvis with IV contrast done on 01/29/2025 showed acute appendicitis without peritonitis or abscess, trace free fluid in the cul-de-sac, there are few subcentimeter mesenteric lymph nodes around the right lumbar to the lower quadrant. OPERATIVE REPORT Name: PAMELA IBARRA Acct: [id number] MR: [id number] : 1995 Admit Date: 01/29/25 [place] [address] Operative Note: DATE OF PROCEDURE: 01/29/25 SURGEON: CHANA ALEXANDRE MD [place] [employer] INSPECTOR: [] ANESTHESIA: [] General ANESTHESIOLOGIST/COOLER WORKER: [] PREOPERATIVE DIAGNOSIS: [] Acute appendicitis POSTOPERATIVE DIAGNOSIS: [] The same SYNOPSIS: [] PROCEDURE: [] Laparoscopic appendectomy ESTIMATED BLOOD LOSS: [] 100 cc INDICATIONS: [] DESCRIPTION OF PROCEDURE: []With the patient prepped and draped in usual fashion supraumbilical incision was done. Using direct technique I was able to place a balloon trocar and abdomen insufflated. Two 5 mm trochars were inserted under direct vision in the lower abdomen. Immediately we identified an inflamed appendix and a window was created in the base and the appendix. Using a laparoscopic 45 mm AALIYAH white stapler I transected the base of appendix. I used a reload to transect the mesoappendix. I had one bleeding point that I need to cauterize and and then we were able to use a 2nd loading of the white staplers to control bleeding. The appendix was placed in a bag. After adequate hemostasis and irrigation in the area I remove all the trochars under direct vision and the appendix through the supraumbilical incision. The fascia was closed with the 0 Vicryl [id number]. All incisions were closed with staplers. I placed 20 cc of local. Patient tolerated procedure without complication CHANA ALEXANDRE MD Jan 29, 2025 16:05 Electronically Signed by: CHANA ALEXANDRE MD01/29/25 1605 Electronically Co-Signed by: Assessment/Plan: Discharge diagnosis: Acute appendicitis POA status post laparoscopic appendectomy POD 1 Nicotine dependence POA Morbid obesity POA Assessment/plan: Acute appendicitis POA status post laparoscopic appendectomy POD 1 On admission he complained of abdominal pain. CT scan of abdomen and pelvis showed acute appendicitis. General surgery was consulted and they recommended laparoscopic appendectomy. He had laparoscopic appendectomy on 01/29/2025. After the surgery he complained of abdominal pain which is relieved after taking tylenol. He is able to tolerate GI soft/bland diet. He is able to walk. General surgery cleared the patient for discharge and they advised him to follow up in 2weeks. He is medically stable and so we discharged him. Advised to take tylenol for pain and follow up with surgery in 2 weeks. Discharge Instructions: Discharge date: 01/30/2025 Discharge instructions: 1) Follow up with primary care physician within 2 to 3 days after discharge. 2) Follow up with general surgery in 2 weeks after discharge. 3) Advised to take tylenol for pain. 4) Continue all medications as prescribed. Do not discontinue or change doses without consulting your PCP. 5) Gradually resume normal activities as tolerated. 6) Continue a balanced diet. 7) Seek immediate medical attention if you experience chest pain, SOB, or severe headache. Discharge to: Home Condition on discharge: Stable Home Medications: Discontinued Scripts Ibuprofen (Motrin/Advil) 800 Mg Tab, 800 MG PO TIDP PRN for PAIN, #30 TAB Prov:ROWAN TIPTON MD 06/16/22 Cefuroxime Axetil (Cefuroxime) 500 Mg Tablet, 500 MG PO BID, #20 TAB Prov:ROWAN TIPTON MD 06/16/22 Time spent arranging discharge: 1-30 minutes ATTESTATION BY PHYSICIAN I have seen and examined the patient. I reviewed the documentation, medical decision making, and treatment plan as noted by the resident physician above. I agree with the findings and plan of care. WAQAR PROCTOR MD, AKSHAY MD Jan 30, 2025 17:25
--- NOTE | 2025-01-30 17:28 | NUR ---
DISCHARGE INSTRUCTIONS GIVEN TO PATIENT, VERBALIZED UNDERSTANDING ALL BELONGINGS ARE WITH PATIENT. IV REMOVED DRESSING APPLIED. INFORMED TO INFORMATION SERVICES ASSISTANT ALL MEDICATIONS AT PHARMACY.
--- NOTE | 2025-02-11 09:45 | HMCIMG ---
EXAM: CT Abdomen and Pelvis with IV contrast CLINICAL HISTORY: Right lower quadrant abdominal pain. Questionable acute appendicitis. TECHNIQUE: Postcontrast thin collimated axial CT images of the abdomen and pelvis were obtained with sagittal and coronal reformatted images also submitted. CT scan is done according to ALARA (As Low As Reasonably Achievable). COMPARISON: None. FINDINGS: The included lungs are clear. No focal abnormality within the liver, gallbladder, pancreas, spleen, adrenals, or kidneys. Focal cortical scar around the left renal lower pole. Unremarkable urinary bladder. The reproductive organs are within normal limits. Bowel loops are normal in caliber without evidence of obstruction or ileus. Mildly dilated and thickened appendix with periappendiceal fat stranding. The appendix measures up to 0.8 cm in diameter. There are a few subcentimeter mesenteric lymph nodes around the right lumbar to the lower quadrants. Grossly unremarkable abdominal vessels. No pneumoperitoneum. Trace free fluid in the pelvis. There is no acute osseous abnormality. IMPRESSIONS: Acute appendicitis is evident without perforation or abscess. Trace free fluid in the cul-de-sac. There are a few subcentimeter mesenteric lymph nodes around the right lumbar to the lower quadrants. /Haylie
== END 2025-01-30 17:29 | disposition home or self-care (01) ==
LOC: EDH 01:52 → EDHIP 01:53 → INTOOBSV 01:53 → UNDOADMOB 01:53 → 1MS 04:32 → EDHIP 06:22 → 3DH 01-30 16:21
PROVIDERS: ADMIT Internal Medicine; ATTEND Internal Medicine
DX: K35.80 Unspecified acute appendicitis (principal); E66.01 Morbid (severe) obesity due to excess calories; F17.200 Nicotine dependence, unspecified, uncomplicated; Z79.899 Other long term (current) drug therapy; Z98.890 Other specified postprocedural states; Z68.37 Body mass index [BMI] 37.0-37.9, adult
CPT/HCPCS: 44970; 96376 ×2; 96365; 96366 ×4; 96375 ×2; 96368; 99285; 80076; 80048; 83690; 85025 ×2; 81003; 36415 ×2; 88304; 74177; 96367; 83735; 80053; 85610; 85730; J7030 ×2; J7120; J3010 ×3; J1100; J0330; J3490 ×3; J2003; J2250; J2704; J2405 ×3; J2270 ×3; J2710; J2543 ×5; J0665; J2470 ×2; Q9967; C1769 ×3; A4649; A4930 ×2; A4223; A4222; A4216; A4600; A4450; G0378 ×5; J3475; 96374